=== PATIENT | female | born 1955 | race Caucasian/White ===

== ENCOUNTER 2022-09-15 07:14 | Emergency (ER) | payer SELFPAY ==
[2022-09-15] MEDS ORDERED: EPINEPHrine 1:10,000 1 MG/10 ML Syringe ONE ×3 (07:20)
== END 2022-09-15 09:19 | disposition expired ==
LOC: JD.ED 07:14
DX: I46.9 Cardiac arrest, cause unspecified (principal)
CPT/HCPCS: 92950; 99285; J0171